=== PATIENT | female | born 1995 | race Caucasian/White ===

== ENCOUNTER → 2022-09-05 15:55 | Outpatient (CLI) | payer SELFPAY ==
--- NOTE | 2022-09-05 16:07 | DI.RAD.S_ITS ---
PROCEDURE: XR HAND LT MIN 3V INDICATIONS: L 3rd carpal shaft tenderness, swelling <ROM, hit hand yesterday on door jam TECHNIQUE: 3 views of the hand(s) acquired. COMPARISON: None. FINDINGS: Bones: No fractures or dislocations. Carpal bones are normally aligned. No suspicious bony lesions. Soft tissues: No suspicious soft tissue calcifications. IMPRESSION: No acute left hand fracture or dislocation. No gross soft tissue abnormalities. Dictated by: Yariel Stanley M.D. on 09/05/2022 at 16:27 Approved by: Yariel Stanley M.D. on 09/05/2022 at 16:27
== END ==
PROVIDERS: Referring Provider Student in an Organized Health Care Education/Training Program; Visit Provider Student in an Organized Health Care Education/Training Program
DX: S69.92XA Unspecified injury of left wrist, hand and finger(s), initial encounter (principal); X58.XXXA Exposure to other specified factors, initial encounter
CPT/HCPCS: 73130

== ENCOUNTER 2023-10-04 22:01 | Emergency (ER) | payer OTHER, SELFPAY ==
[2023-10-04 22:10] VITALS: BP 129/71; PULSE 85; RESP 16; TEMP 36.8; O2SAT 97; BMI 24.4
--- NOTE | 2023-10-04 22:41 | ED_ITS ---
HPI - Extremity Injury (Lower) General Chief Complaint: Extremity Injury, Lower Stated Complaint: rt foot injury Time Seen by Provider: 10/04/23 22:05 Source: patient Mode of arrival: Ambulatory History of Present Illness HPI Narrative: 28-year-old female presents for foot injury. She was at home when her dog accidentally scratched her foot while playing. She had some pain and a little bit of bruising around her right foot between her 4th and 5th toes. She noticed some numbness in the region and called her [facility] nursing advice line. She states that the person she spoke to recommended she come to the emergency department to evaluate for nerve damage. Related Data Allergies Allergy/AdvReac Type Severity Reaction Status Date / Time doxycycline AdvReac Mild Verified 10/04/23 22:27 Patient History Social History Smoking Status: Unknown if ever smoked Smoking Status: Unknown if ever smoked Substance Use Type: does not use Exam Initial Vital Signs Initial Vital Signs: Vital Signs Temperature 98.3 F 10/04/23 22:10 Pulse Rate 85 10/04/23 22:10 Respiratory Rate 16 10/04/23 22:10 Blood Pressure 129/71 10/04/23 22:10 Pulse Oximetry 97 10/04/23 22:10 Oxygen Delivery Method Room Air 10/04/23 22:10 Const: Awake, alert, no acute distress, nontoxic appearing MSK: No deformity, minimal bruising between 4th and 5th toes on right side, palpable pulses Skin: Warm, Dry, intact Neuro: AO x3, CN II-XII grossly intact, moves all extremities Course Vital Signs Vital signs: Vital Signs - 8 hr 10/04/23 22:10 10/04/23 22:56 Temperature 98.3 F 97.8 F Pulse Rate 85 80 Respiratory Rate 16 16 Blood Pressure 129/71 127/68 Pulse Oximetry 97 97 Oxygen Delivery Method Room Air Room Air MDM - Extremity Injury (Lower) MDM Narrative Medical decision making narrative: Patient is sent in for evaluation of possible nerve injury. Patient is reporting a very small amount of numbness at the site of the bruising. There is no deformity, she is neurovascularly intact. I explained that it can happen that there is transient numbness after trauma to the area, but this usually resolves spontaneously and without any further treatment. Patient has minimal amount of bruising from the area that the dog ran over. Conservative treatments counseled with the patient at bedside. Discharge Plan Departure Patient Disposition: Home Clinical Impression: Acute foot pain Instructions: DI for Foot Pain Activity Restrictions/Additional Instructions: You may have minimal nerve irritation and inflammation, however this can be a very normal finding after bruising or trauma and we will resolve itself with time. Take Tylenol and or ibuprofen as needed for pain. You may apply ice as needed for swelling. Wear supportive shoes. Referrals: Miscellaneous,Doctor, MD [Primary Care Provider] - Stand Alone Forms: Patient Portal/API
[2023-10-04 22:56] VITALS: BP 127/68; PULSE 80; RESP 16; TEMP 36.6; O2SAT 97
== END 2023-10-04 22:56 | disposition home or self-care (01) ==
PROVIDERS: Emergency Provider Emergency Medicine
DX: M79.671 Pain in right foot (principal); X58.XXXA Exposure to other specified factors, initial encounter
CPT/HCPCS: 99281

== ENCOUNTER → 2024-01-22 13:49 | Outpatient (CLI) | payer OTHER, SELFPAY ==
--- NOTE | 2024-01-22 13:50 | DI.US.S_ITS ---
LIMITED ULTRASOUND OF RIGHT BREAST AND AXILLA: 01/22/2024 CLINICAL: Palpable right breast lump. Comparison is made to exam dated: 01/22/2024 mammogram - [facility]. Color flow and real-time ultrasound of the right breast 6 o'clock, and axilla regions were performed. Arzola scale images of the real-time examination were reviewed. There is a 2.2 cm x 1.9 cm x 1.2 cm oval mass with a circumscribed margin in the right breast at 6 o'clock anterior depth 4 cm from the nipple. This oval mass is hypoechoic with a well-defined boundary and posterior acoustic enhancement. This correlates as palpated and with mammography findings. Color flow imaging demonstrates that there is vascularity present. No significant abnormalities were seen sonographically in the right axilla. IMPRESSION: SUSPICIOUS The 2.2 cm x 1.9 cm x 1.2 cm oval mass in the right breast most likely is a fibroadenoma and is at a low suspicion for malignancy. An ultrasound guided biopsy is recommended. No enlarged right axillary lymph nodes. Exam findings were discussed with the patient. This exam was interpreted at Station ID: [id number]. Electronically Signed By: Jan Gonsalez M.D. slc/:01/22/2024 14:52:41 letter sent: Biopsy Required ACR BI-RADS Category 4A: Suspicious
--- NOTE | 2024-01-22 13:50 | DI.MG.S_ITS ---
BILATERAL DIGITAL DIAGNOSTIC MAMMOGRAM 3D/2D: 01/22/2024 CLINICAL: Breast lump. No prior exams were available for comparison. The breasts are extremely dense, which lowers the sensitivity of mammography (category d />75% glandular tissue). There is an oval low density focal asymmetry with an obscured margin in the right breast at 5 o'clock anterior depth. This correlates as palpated. No other significant masses, calcifications, or other findings are seen in either breast. IMPRESSION: INCOMPLETE: NEED ADDITIONAL IMAGING EVALUATION The oval low density focal asymmetry in the right breast is indeterminate. A targeted ultrasound is recommended and will immediately follow. Based on the Tyrer Cuzick model (a risk assessment model) the patient's lifetime risk is 7.8% and her 10 year risk is 0.3%. According to the ACR, ACS, and NCCN guidelines, an annual breast MRI exam along with mammogram is recommended if the patient's lifetime risk is 20% or greater. This exam was interpreted at Station ID: [id number]. NOTE: For mammograms, a report in lay terms will be sent to the patient. Approximately 15% of breast malignancies will not be visualized mammographically. In the management of a palpable breast mass, a negative mammogram must not discourage biopsy of a clinically suspicious lesion. Electronically Signed By: Jan Gonsalez M.D. [facility] [place]/:01/22/2024 14:25:03 letter sent: Additional Imaging Needed ACR BI-RADS Category 0: Incomplete: Need Additional Imaging Evaluation
== END ==
PROVIDERS: Referring Provider Obstetrics & Gynecology; Visit Provider Obstetrics & Gynecology
DX: R92.8 Other abnormal and inconclusive findings on diagnostic imaging of breast (principal); N63.15 Unspecified lump in the right breast, overlapping quadrants
CPT/HCPCS: 76642; 77066; G0279

== ENCOUNTER → 2024-02-13 08:38 | Outpatient (CLI) | payer OTHER, SELFPAY ==
--- NOTE | 2024-02-13 | DI.MG.S_ITS ---
UNILATERAL RIGHT DIGITAL DIAGNOSTIC MAMMOGRAM 3D/2D POST-PROCEDURE IMAGING FOR MARKER PLACEMENT: 02/13/2024 CLINICAL: Post right breast ultrasound biopsy clip placement imaging. Comparison is made to exams dated: 01/22/2024 mammogram and 01/22/2024 [facility] - . The breasts are extremely dense, which lowers the sensitivity of mammography (category d />75% glandular tissue). There is a marker clip in the appropriate position in the right breast at 6 o'clock anterior depth. This marker clip placement is at the biopsy site. IMPRESSION: POST PROCEDURE MAMMOGRAM FOR MARKER PLACEMENT There was a successful marker clip placement in the right breast anterior depth. Based on the Tyrer Cuzick model (a risk assessment model) the patient's lifetime risk is 7.8% and her 10 year risk is 0.3%. According to the ACR, ACS, and NCCN guidelines, an annual breast MRI exam along with mammogram is recommended if the patient's lifetime risk is 20% or greater. This exam was interpreted at Station ID: [id number]. NOTE: For mammograms, a report in lay terms will be sent to the patient. Approximately 15% of breast malignancies will not be visualized mammographically. In the management of a palpable breast mass, a negative mammogram must not discourage biopsy of a clinically suspicious lesion. Electronically Signed By: Yariel hough/daiana:02/13/2024 13:06:10 ACR BI-RADS Category Post-Procedure Mammogram for Marker Placement
--- NOTE | 2024-02-13 | PATH_ITS ---
[facility] Accession Number: [id number] No. of containers..01 Tissue . 01 Material submitted: . breast - RIGHT BREAST MASS 6:00 . 01 Diagnosis: RIGHT BREAST MASS, 6 O'CLOCK, IMAGE-GUIDED BIOPSY: Fibroadenoma. Negative for atypia and malignancy. MRV 02/15/2024 1536 Local . 01 Electronically signed: . Yolette Negron MD, Pathologist NPI- [id number] . 01 Gross description: . Received is one formalin-filled container labeled with the patient's name and labeled right breast 6 o'clock 4 cm FN. The specimen is received with plastic filter in container and part sample loose in container and consists of multiple fragments of light lee-vann soft tissue and clotted blood which range in size from 0.3 x 0.3 x 0.2 cm to 1.2 x 0.3 x 0.3 cm. All fragments are totally submitted in cassette A1. . Possible collection date and time per requisition 02/13/2024 at 0945 hours. Total fixation time approximately 40 hours. ([id number]) /SCOOBY 02/14/2024 0802 Local . 01 Microscopic: . Microscopic examination reveals fibroepithelial lesion with pale, mildly cellular stroma and bland glandular elements without atypia or increased mitotic activity. No leaf-like architecture is present. No significant stromal overgrowth is seen. . Negative for in situ or invasive carcinoma. . 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 . Clinical and radiologic correlation is recommended. . 01 Pathologist provided ICD-10: N63.0 . 01 CPT . 611978 Specimen Comment: A courtesy copy of this report has been sent to [phone] Performed at: [address] [facility], [place], [place] [id number] MD Pablo Flores MD Phone: [phone]
--- NOTE | 2024-02-13 | DI.US.S_ITS ---
ULTRASOUND GUIDED BIOPSY RIGHT BREAST WITH MARKING DEVICE INSERTED AND POST DIGITAL MAMMOGRAPHIC IMAGIN02/13/2024 CLINICAL: Right breast mass. PATIENT CONSENT: Risks (minor bleeding, infection, vasovagal reaction and repeat procedure), benefits and alternatives were explained to the patient and written informed consent was obtained. Correlation is made to exams dated: 02/13/2024 mammogram, 01/22/2024 ultrasound, and 01/22/2024 mammogram - [facility]. An ultrasound guided biopsy using real-time ultrasound was performed for the solid mass located in the right breast at 6 o'clock middle depth. This was described on the previous ultrasound report. The skin was prepped in the usual manner. Local anesthetic was administered to the access site. A small incision was made in the breast. The abnormality was approached from the lateral aspect. A biopsy needle was placed adjacent to the abnormality under ultrasound guidance. Once the needle was documented to be in the correct location, four specimens were obtained using a BARD biopsy device. The patient received additional local anesthetic during the procedure. A clip was inserted into the biopsy cavity. A skin adhesive was applied to the access site. Post procedure digital mammographic imaging demonstrates the location device at the targeted area. The specimens were sent to the laboratory for pathological analysis. IMPRESSION: ULTRASOUND GUIDED BIOPSY BENIGN Ultrasound guided biopsy of the solid mass in the right breast at 6 o'clock middle depth was successful. Pathology indicates benign finding with no atypia present. Pathology results are concordant with imaging findings. Clinical follow up as needed. Screening mammography beginning at age 40 is recommended. Results and recommendations will be communicated to the ordering provider's office. This exam was interpreted at Station ID: [id number]. jerry Davis M.D., M.D./:02/19/2024 09:11:31
== END ==
PROVIDERS: Referring Provider Obstetrics & Gynecology; Visit Provider Obstetrics & Gynecology
DX: D24.1 Benign neoplasm of right breast (principal); R92.343 Mammographic extreme density, bilateral breasts
CPT/HCPCS: 19083; 77065